=== PATIENT | male | born 2000 | race Hispanic/Latino ===

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

== ENCOUNTER 2022-07-29 15:59 | Emergency (ER) | payer OTHER ==
[~2022-07-29] VITALS: Ht 182.9 cm; Wt 158.8 kg
[2022-07-29 16:10] VITALS: BP 148/95
[2022-07-29] MEDS ORDERED: 0.9%NACL 1000ML 1,000 ML IV ONE ×2 (17:00→18:00)
[2022-07-29 17:08] LABS: BASOPHILS % (AUTO) 0.6 % (0.0-5.0); EOSINOPHILS % (AUTO) 1.5 % (0.0-8.0); HEMATOCRIT 46.5 % (42-54); LYMPHOCYTES % (AUTO) 27.5 % (21.0-51.0); MEAN CORPUSCULAR HEMOGLOBIN 29.7 pg (27.0-33.0); MEAN CORPUSCULAR HGB CONC 35.5 g/dL (32.0-36.0); MEAN CORPUSCULAR VOLUME 83.8 fL (79-99); MONOCYTES % (AUTO) 6.6 % (3.0-13.0); NEUTROPHILS % (AUTO) 63.4 % (40.0-77.0); PLATELET COUNT (AUTO) 274 K/uL (130-400); RED BLOOD CELL COUNT(AUTO) 5.55 MIL/uL (4.50-6.20); RED CELL DISTRIBUTION WIDTH 12.6 % (11.0-15.5); WHITE BLOOD COUNT (AUTO) 10.4 K/uL (4.8-10.8)
[2022-07-29 17:12] LABS: ABG OXYGEN SATURATION 46.5 % (95.0-99.0); BASE EXCESS,VENOUS BLOOD GAS -2.4 (-2.0-3.0); HCO3,VENOUS BLOOD GAS 23.1 (21.0-28.0); PCO2,VENOUS BLOOD GAS 42 (35-48); PH,VENOUS BLOOD GAS 7.355 (7.350-7.450)
[2022-07-29 17:21] LABS: APPEARANCE,URINE CLEAR (CLEAR); BILIRUBIN,URINE NEGATIVE (NEGATIVE); COLOR,URINE COLORLESS (YELLOW); GLUCOSE, URINE (UA) >=1000 mg/dL (NEGATIVE); KETONES,URINE 40 mg/dL (NEGATIVE); LEUKOCYTE ESTERASE ,URINE NEGATIVE Leu/uL (NEGATIVE); NITRATE,URINE NEGATIVE (NEGATIVE); OCCULT BLOOD,URINE NEGATIVE (NEGATIVE); PROTEIN,URINE NEGATIVE (NEGATIVE); UROBILINOGEN,URINE 0.2 mg/dL (0.2-1.0)
[2022-07-29 17:22] LABS: MUCUS,URINE RARE LPF (None Seen); RBC,URINE 0-1 /HPF (0-1); WBC,URINE 0-1 /HPF (0-1)
[2022-07-29 17:39] LABS: ALBUMIN 3.8 g/dL (3.5-5.0); CREATININE 1.1 mg/dL (0.5-1.5); POTASSIUM 4.1 mmol/L (3.5-5.1); TOTAL PROTEIN, SERUM 8.4 g/dL (6.0-8.3)
== END 2022-07-29 18:41 | disposition left against medical advice (07) ==
LOC: EDH 15:59
DX: E86.0 Dehydration (principal); E11.65 Type 2 diabetes mellitus with hyperglycemia; Z91.14 Patient's other noncompliance with medication regimen
CPT/HCPCS: 99283; 96360; 82947; 80053; 82803; 85025; 83605; 82010; 81001; 36415; 36600; 82435; 84132; 84295; 82948; J7030

== ENCOUNTER 2022-10-01 04:22 | Emergency (ER) | payer OTHER ==
[~2022-10-01] VITALS: Ht 180.3 cm; Wt 131.7 kg
[2022-10-01 04:28] VITALS: BP 164/91
[2022-10-01] MEDS ORDERED: AMOX1TAB16 PO (04:58)
[2022-10-01] MEDS ORDERED: IBUP-1493 PO (04:58)
[2022-10-01] MEDS ORDERED: METF-444 PO (04:58)
[2022-10-01] MEDS ORDERED: ACETAMINOPHEN 325 MG TAB PO ONE (05:00)
[2022-10-01] MEDS ORDERED: OXYCODONE HCL 5 MG TAB PO ONE (05:00)
== END 2022-10-01 05:15 | disposition home or self-care (01) ==
LOC: EDH 04:22
DX: E11.9 Type 2 diabetes mellitus without complications (principal); K04.7 Periapical abscess without sinus; Z91.14 Patient's other noncompliance with medication regimen
CPT/HCPCS: 82948

== ENCOUNTER 2024-12-25 01:38 | Emergency (ER) | payer SELFPAY ==
[~2024-12-25] VITALS: Ht 177.8 cm; Wt 140.6 kg
[~2024-12-25 01:38] MED LIST: AMOX1TAB16 PO; IBUP-1493 PO; METF-444 PO
[2024-12-25] MEDS ORDERED: CLIN-141 PO (01:48)
[2024-12-25] MEDS ORDERED: IBUP-2077 PO (01:48)
--- NOTE | 2024-12-25 01:49 | ERN ---
ED Note History of Present Illness Stated Complaint: C/O TOOTHACHE TO RT TOP SIDE X 1 WK Chief Complaint: Tooth Ache/Pain Time Seen by MD: 01:39 Dictation: PATIENT IS A 24-YEAR-OLD MALE COMING IN TODAY WITH DENTAL PAIN HE HAS HAD FOR MORE THAN A WEEK. HE STATES IT ONLY GOT CONSIDERABLY WORSE TONIGHT WHERE HE HAD TO COME TO THE HOSPITAL FOR TREATMENT. HE STATES HE DOES NOT HAVE THE MONEY TO GO TO A DENTIST AND HIS DOCTOR IS IN [place]. Allergies: Coded Allergies: No Known Drug Allergies (Unverified Allergy, Unknown, 07/29/22) Home Meds Active Scripts Ibuprofen (Motrin/Advil) 800 Mg Tab, 800 MG PO TID, #30 TAB Prov:GARIMA LYNN MD 10/01/22 Amoxicillin/Potassium Clav (Amox Tr-K Clv 875-125 mg Tab) 1 Each Tablet, 1 EACH PO BID, #20 TAB Prov:GARIMA LYNN MD 10/01/22 Metformin HCl (Metformin HCl) 500 Mg Tablet, 500 MG PO BID, #60 TAB Prov:GARIMA LYNN MD 10/01/22 Past Medical History Past Medical History: Diabetes-Type II Surgical History: None Family History: CAD, DM Social History: Smokers, Lives with family RN Note Reviewed/Agreed w/PFSH: Yes Review of System Dictation CONSTITUTIONAL: NEGATIVE EXCEPT FOR HPI HEAD/FACE: NEGATIVE EXCEPT FOR HPI EENT: NEGATIVE EXCEPT FOR HPI DENTAL PAIN RESPIRATORY: NEGATIVE EXCEPT FOR HPI GASTROINTESTINAL/ABDOMINAL: NEGATIVE EXCEPT FOR HPI GENITOURINARY: NEGATIVE EXCEPT FOR HPI MUSCULOSKELETAL: NEGATIVE EXCEPT FOR HPI INTEGUMENTARY: NEGATIVE EXCEPT FOR HPI NEUROLOGICAL/PSYCH: NEGATIVE EXCEPT FOR HPI HEMATOLOGIC/LYMPHATIC: NEGATIVE EXCEPT FOR HPI ALL SYSTEMS NEGATIVE, EXCEPT NOTED ABOVE. 13 POINT REVIEW OF SYSTEMS ASSESSED AND ALL NEGATIVE EXCEPT FOR ABOVE. Physical Exam Dictation VITAL SIGNS REVIEWED MODERATE ACUTE DISTRESS, WELL DEVELOPED, NOURISHED. HEAD AND FACE: NON-TRAUMATIC. EYES: PERRL, PINK CONJUNCTIVAS, EYELID NO TRAUMA, ANTERIOR CHAMBER WITH ARCUS SENILIS. EARS: PINNAS INTACT AND NO SIGNS OF TRAUMA OR ERYTHEMA EAR CANALS CLEAR AND NO DISCHARGE TM NO ERYTHEMA NOSE: NO DISCHARGE, NO BLEEDING. OROPHARYNX: TEETH [id number] AND 16,18 AND 19 WITH DENTAL CARIES, VERY POOR HYGIENE PHARYNX CLEAR,NO ERYTHEMA, TONSILS NO EXUDATES, NO ABSCESSES NOTED, MUCOUS MEMBRANE MOIST NECK: SUPPLE, NON-TENDER, NO THYROMEGALY, NO MASSES, NO JVD, NO BRUITS BREAST:DEFERRED CHEST:NO TENDERNESS, NO CREPITUS, NO PARADOXICAL MOVEMENT, NO RETRACTIONS LUNGS:CLEAR, WELL-VENTILATED, SYMMETRIC, NO RALES, NO WHEEZING, NO RHONCHI, NO STRIDOR, GOOD BREATH SOUNDS BILATERALLY HEART: REGULAR RATE, REGULAR RHYTHM, NO MURMUR, NO GALLOPS VASCULAR: NO PERIPHERAL EDEMA, ABDOMEN: SOFT, POSITIVE BOWEL SOUNDS, NONDISTENDED, NO GUARDING, NONTENDER, NO REBOUND, NO MASSES NO HEPATOMEGALY, NO SPLENOMEGALY, NO WILLIS'S SIGN, NO HERNIAS. RECTAL: DEFERRED GENITAL: DEFERRED NEUROLOGICAL: NORMAL SPEECH, MOTOR FUNCTION INTACT, SENSORY FUNCTION INTACT MUSCULOSKELETAL: NECK NONTENDER, FULL RANGE OF MOTION, BACK NONTENDER, FULL RANGE OF MOTION, EXTREMITIES: NONTENDER, FULL RANGE OF MOTION SKIN: COLOR PINK, DRY, NO TURGOR, NO RASH, NO LACERATIONS, NO ABRASIONS, NO CONTUSIONS. LYMPHATIC: DEFERRED Results (Laboratory/Radiology) Labs Reviewed?: Yes ED Course ED Course Orders Procedure Category Date Status Time Clindamycin 150mg Cap PHA 12/25/24 Logged (Cleocin 150mg Cap 02:00 Ketorolac 60mg/2ml PHA 12/25/24 Logged (Toradol 60mg/2ml) 02:00 Current Medications Medications (Trade) Dose Ordered Sig/Stew Route PRN Reason Start Time Stop Time Status Last Admin Dose Admin Clindamycin HCl (Cleocin 150mg Cap) 600 mg ONCE ONCE PO 12/25/24 02:00 12/25/24 02:01 UNV Ketorolac Tromethamine (toRADol 60MG/ 2ML) 60 mg ONCE ONCE IM 12/25/24 02:00 12/25/24 02:01 UNV [id number] PATIENT WILL BE GIVEN CLINDAMYCIN AND KETOROLAC. HE WAS REFERRED TO BE [facility] FOR A DENTIST WITH A AN AFTER HOURS EMERGENCY NUMBERS OR HE COULD SEEK DENTAL CARE IN [place]. Medical Decision Making MDM MEDICAL DISCHARGE MAKING BASED ON EMPIRIC TREATMENT FOR DENTAL CARIES AND DENTALGIA. PATIENT GIVEN TORADOL 60 MG LOADED WITH CLINDAMYCIN 600 MG SENT HOME WITH HIS TO FOLLOW UP WITH THE DENTIST WITH A AN EMERGENCY NUMBER OR [place] FOR DENTAL TREATMENT. DX & DISP Disposition: Discharge Departure Impression: Primary Impression: Dental caries extending into pulp Additional Impression: Dentalgia Condition: Stable Scripts Clindamycin HCl (Clindamycin HCl) 300 Mg Capsule 1 CAP PO QID for 10 Days, #40 CAP 0 Refills Prov: PRADIP DE SANTIAGO NP 12/25/24 Ibuprofen (Ibuprofen 800 mg Tab) 800 Mg Tab 800 MG PO Q8H PRN for fever or pain, #30 TAB 0 Refills Prov: PRADIP DE SANTIAGO CYLINDER SANDER OPERATOR 12/25/24 Additional Instructions: FOLLOW-UP WITH PRIMARY CARE PROVIDER IN 1 TO 2 DAYS. TAKE MEDICATIONS DIRECTED HERE IN THE EMERGENCY ROOM. OKAY TO CONTINUE HOME MEDICATIONS UNLESS OTHERWISE DISCUSSED DURING YOUR VISIT IN THE EMERGENCY ROOM TODAY. RETURN TO YOUR NEAREST EMERGENCY ROOM IF SYMPTOMS WORSEN OR IF THERE IS NO IMPROVEMENT. CALL 911 IF YOU NEED IMMEDIATE ASSISTANCE. TAKE TYLENOL OR MOTRIN [id number] NEEDED AND IF NO CONTRAINDICATIONS ARE PRESENT. INCREASE ORAL HYDRATION. A WOUND CULTURE OR URINE CULTURE WAS ORDERED HERE IN THE EMERGENCY ROOM DEPARTMENT PLEASE FOLLOW-UP WITH PRIMARY CARE PROVIDER AND ADVISE THEM TO GET REPEAT PORTS FROM OUR FACILITY. IF YOU HAD ANY JAYRO WRAP/SPLINTS THAT WERE APPLIED HERE, PLEASE DO NOT REMOVE THEM UNTIL YOU SEE YOUR PRIMARY CARE OR SPECIALTY. TAKE CLINDAMYCIN DIRECTED UNTIL GONE. TAKE IBUPROFEN EVERY 6-8 HOURS NEEDED FOR PAIN WITH FOOD. LOOKING THE [facility] FOR A DENTIST WITH A AN AFTER HOURS EMERGENCY NUMBER OR GO TO [place] FOR DENTAL CARE. Referrals: SELF,REFERRAL (PCP) Time of Disposition: 01:47 I have reviewed the case, and I agree with, Diagnosis and Plan PRADIP DE SANTIAGO NP Dec 25, 2024 01:49
[2024-12-25 01:58] VITALS: BP 167/85; PULSE 84; RESP 18; TEMP 99.7; O2SAT 98
[2024-12-25] MEDS: ketOROlac 60 MG VIAL (30MG/ML) IM ONE (02:04)
[2024-12-25] MEDS: CLINDAMYCIN 150 MG CAP PO ONE (02:04)
== END 2024-12-25 02:21 | disposition home or self-care (01) ==
LOC: EDH 01:38
DX: K02.9 Dental caries, unspecified (principal); E11.9 Type 2 diabetes mellitus without complications; F17.200 Nicotine dependence, unspecified, uncomplicated; Z79.1 Long term (current) use of non-steroidal anti-inflammatories (NSAID); Z79.84 Long term (current) use of oral hypoglycemic drugs
CPT/HCPCS: 99284; 96372; J1885